=== PATIENT | female | born 1970 | race Caucasian/White ===

== ENCOUNTER 2020-12-27 08:50 | Emergency (ER) | payer BC, OTHER ==
[2020-12-27] MEDS ORDERED: Bupivacaine 0.25%/EPINEPHrine 1:200,000 30 ML SDV ONE (09:23)
[2020-12-27] MEDS ORDERED: Bupivacaine 0.25%/EPINEPHrine 1:200,000 30 ML SDV INJECT ONE (09:28)
--- NOTE | 2020-12-27 10:52 | EDM.PDOC ---
ED HPI GENERAL MEDICAL PROBLEM - General Chief Complaint: Laceration Stated Complaint: LACERATION TO THE LEG Time Seen by Provider: 12/27/20 09:05 Source of Information: Reports: Patient - History of Present Illness INITIAL COMMENTS - FREE TEXT/NARRATIVE: Divya knife fell off the countertop with an incision to the right lower extremity proximally 20 minutes prior to arrival patient denies any numbness tingling or loss of sensation she states she can fully move her ankle foot and toes with no issues Tetanus is up-to-date She has no other complaints at this time Onset: Today, Sudden Duration: Minutes: Quality: Reports: Burning, Sharp Severity: Mild Improves with: Reports: None Worsens with: Reports: Movement - Related Data Allergies Allergy/AdvReac Type Severity Reaction Status Date / Time bee venom protein (honey bee) Allergy Airway Verified 12/27/20 09:06 Tightness latex Allergy Rash Verified 12/27/20 09:06 Sulfa (Sulfonamide Allergy Hives Verified 12/27/20 09:06 Antibiotics) contrast dye Allergy Cannot Uncoded 03/30/18 11:26 Remember Home Meds: Home Meds Beclomethasone Dipropionate [Qvar] 2 puff IH BID 03/30/18 [History] Simvastatin 20 mg PO DAILY 03/30/18 [History] Past Medical History Cardiovascular History: Reports: High Cholesterol Respiratory History: Reports: Asthma - Past Surgical History Female Surgical History: Reports: Hysterectomy, Mastectomy Social & Family History - Tobacco Use Tobacco Use Status *Q: Never Tobacco User - Alcohol Use Days Per Week of Alcohol Use: 1 Number of Drinks Per Day: 1 Total Drinks Per Week: 1 - Recreational Drug Use Recreational Drug Use: No ED ROS GENERAL - Review of Systems Review Of Systems: See Below Constitutional: Reports: No Symptoms HEENT: Reports: No Symptoms Respiratory: Reports: No Symptoms Cardiovascular: Reports: No Symptoms Endocrine: Reports: No Symptoms GI/Abdominal: Reports: No Symptoms : Reports: No Symptoms Musculoskeletal: Reports: No Symptoms, Muscle Pain, Other (Patient states pain is mild 1 or 2 out of 10) Skin: Reports: No Symptoms Neurological: Reports: No Symptoms Psychiatric: Reports: No Symptoms Hematologic/Lymphatic: Reports: No Symptoms Immunologic: Reports: No Symptoms ED EXAM, SKIN/RASH Exam: See Below Exam Limited By: No Limitations General Appearance: Alert, WD/WN, No Apparent Distress Throat/Mouth: Normal Voice, No Airway Compromise Neck: Full Range of Motion Respiratory/Chest: No Respiratory Distress Extremities: Normal Inspection, Normal Range of Motion, Non-Tender, No Pedal Edema, Normal Capillary Refill, Other (Exam of the right foot patient is neurovascular intact strong dorsalis pedis posterior tibialis cap refill full range of motion with flexion extension of the toes normal dorsiflexion plantar flexion and extension she has equal soft touch sensation good cap refill full range of motion with the ankle ) Neurological: Alert, Oriented, CN II-XII Intact, Normal Cognition, Normal Gait, Normal Reflexes, No Motor/Sensory Deficits Psychiatric: Normal Affect, Normal Mood Skin: Warm, Dry, Intact, Normal Color, No Rash, Other Location, Skin: Other (Laceration noted be from the lateral anterior tibial aspect wrapping around to the top of the lateral malleolus measures approximately 12 cm x 1 cm by half centimeter in depth) Course - Vital Signs Text/Narrative:: The area was cleaned with 1000 mL normal saline mixed with Hibiclens the wound was irrigated with copious amounts it was recleaned with Betadine and normal saline as well 4-0 Vicryl buried subcutaneous running stitch throughout the wound for tension it was closed superficially with 4-0 Vicryl running stitch the wound edges were reapproximated with Dermabond and Steri-Strips with good approximation Telfa pad Kerlix and Coban was applied for dressing patient was rechecked and found to be neurovascular intact full range of motion with the toes and ankle Patient at this time does not want anything for pain states ibuprofen will be okay Last Recorded V/S: Last Vital Signs Temp 36.9 C 12/27/20 09:01 Pulse 87 12/27/20 09:01 Resp 14 12/27/20 09:01 BP 138/84 12/27/20 09:01 Pulse Ox 97 12/27/20 09:01 - Orders/Labs/Meds Meds: Medications Discontinued Medications Generic Name Dose Route Start Last Admin Trade Name Clarisa PRN Reason Stop Dose Admin Bupivacaine HCl/Epinephrine Bitart Confirm 12/27/20 09:23 12/27/20 09:29 Bupivacaine 0.25%/Epinephrine 1:200,000 30 Ml Sdv Administered 12/27/20 09:24 30 ml Dose Administration 30 ml .ROUTE .STK-MED ONE Bupivacaine HCl/Epinephrine Bitart 30 ml 12/27/20 09:28 12/27/20 09:29 Bupivacaine 0.25%/Epinephrine 1:200,000 30 Ml Sdv INJECT 12/27/20 09:29 Not Given ONETIME ONE Departure - Departure Time of Disposition: 10:45 Disposition: Home, Self-Care 01 Condition: Good Clinical Impression: Laceration of right lower leg - Discharge Information *PRESCRIPTION DRUG MONITORING PROGRAM REVIEWED*: No *COPY OF PRESCRIPTION DRUG MONITORING REPORT IN PATIENT FUNMI: No Instructions: Laceration Care, Adult, [id number] Referrals: Elzbitea Clement DO [Primary Care Provider] - Forms: ED Department Discharge Additional Instructions: Follow-up with your primary care provider in the next 24 to 48 hours for wound recheck Keep the area clean with warm soapy water wash it at least twice a day do not apply any Neosporin Vaseline or any other agents besides warm soapy water The Steri-Strips will peel off in about 7 days do not peel them off or peel the glue off let them peel off on their own I recommend using Mederma Advanced Scar Gel apply to the area 2-3 times a day after the first 2 weeks for at least 1 to 2 months Return to the emergency room or your primary care provider if any redness swelling drainage pain or anything that does not feel normal Return to the emergency room if anything changes or gets worse Sepsis Event Note (ED) - Focused Exam Vital Signs: Vital Signs Temp Pulse Resp BP Pulse Ox 12/27/20 09:01 36.9 C 87 14 138/84 97 - Problem List & Annotations (1) Laceration of right lower leg SNOMED Code(s): 16285138510298541 Code(s): S81.811A - LACERATION W/O FOREIGN BODY, RIGHT LOWER LEG, INIT ENCNTR Status: Acute Current Visit: Yes
== END 2020-12-27 11:13 | disposition home or self-care (01) ==
LOC: VM.ED 08:50
DX: S81.811A Laceration without foreign body, right lower leg, initial encounter (principal); E78.00 Pure hypercholesterolemia, unspecified; J45.909 Unspecified asthma, uncomplicated; Z91.030 Bee allergy status; Z91.040 Latex allergy status; Z88.2 Allergy status to sulfonamides; Z91.041 Radiographic dye allergy status; Z79.899 Other long term (current) drug therapy; W26.0XXA Contact with knife, initial encounter; Y92.000 Kitchen of unspecified non-institutional (private) residence as the place of occurrence of the external cause
CPT/HCPCS: 12004; 12034; 99283; 99283-25